=== PATIENT | male | born 1995 ===

== ENCOUNTER 2021-12-11 15:43 | Inpatient (IN) | payer OTHER ==
[~2021-12-11] VITALS: Ht 182.9 cm; Wt 65.8 kg
--- NOTE | 2021-12-11 16:32 | NUR ---
SE RECIBE PTE ALERTO Y ORIENTADO X3 CON MADRE. PTE REFIERE SENTIR MASA EN ABDOMEN, LADO DERECHO Y DOLOR DE ESPALDA. VERBALIZA EPISODIOS DE VOMITOS Y DIARREAS. SINTOMAS COMENZARON 10/23/21. PTE VIENE CON REFIRIDO DE DRA NELLY CRUZ, QUIEN INDICA TX A SEGUIR. SE MARC SV Y SE UBICA.
--- NOTE | 2021-12-11 17:46 | NUR ---
TX. OFRECIDO POR MR. Chantal DURAN QUIEN ORIENTA AL PACIENTE SOBRE EL TX. EXTRAE MUESTRAS BAJO MEDIDAS ASEPTICA, ROTULA Y ENVIA AL LABORATORIO. CANALIZA Y ADMINISTRA MEDICAMENTO JAYASHREE ORDEN MEDICA.
== END 2022-01-05 17:44 | disposition home or self-care (01) | DRG 808 ==
LOC: ER 15:43 → SURH 12-12 02:32 → SEC-K 12-12 02:32 → SURH 12-12 12:29
PROVIDERS: ADMIT Internal Medicine; ATTEND Internal Medicine
PROC: BW21YZZ Computerized Tomography (CT Scan) of Abdomen and Pelvis using Other Contrast (ICD-10-PCS; 2021-12-11)
PROC: 8E0ZXY6 Isolation (ICD-10-PCS; principal; 2021-12-13)
PROC: 0WBH4ZX Excision of Retroperitoneum, Percutaneous Endoscopic Approach, Diagnostic (ICD-10-PCS; 2021-12-14)
PROC: BW24ZZZ Computerized Tomography (CT Scan) of Chest and Abdomen (ICD-10-PCS; 2021-12-14)
PROC: CW1NLZZ Planar Nuclear Medicine Imaging of Whole Body using Gallium 67 (Ga-67) (ICD-10-PCS; 2021-12-18)
DX: D61.818 Other pancytopenia (principal); A19.9 Miliary tuberculosis, unspecified; J18.9 Pneumonia, unspecified organism; B59 Pneumocystosis; B04 Monkeypox; E46 Unspecified protein-calorie malnutrition; Z68.1 Body mass index [BMI] 19.9 or less, adult; C46.0 Kaposi's sarcoma of skin; K92.2 Gastrointestinal hemorrhage, unspecified; C85.90 Non-Hodgkin lymphoma, unspecified, unspecified site; R64 Cachexia; M86.9 Osteomyelitis, unspecified; B37.89 Other sites of candidiasis; F50.89 Other specified eating disorder; D72.819 Decreased white blood cell count, unspecified; R16.1 Splenomegaly, not elsewhere classified; J43.2 Centrilobular emphysema; D71 Functional disorders of polymorphonuclear neutrophils; R21 Rash and other nonspecific skin eruption; D69.6 Thrombocytopenia, unspecified; Z21 Asymptomatic human immunodeficiency virus [HIV] infection status